=== PATIENT | male | born 1955 ===

== ENCOUNTER 2021-02-26 14:50 | Emergency (ER) ==
[~2021-02-26] VITALS: Ht 177.8 cm; Wt 74.8 kg
[2021-02-26] MEDS ORDERED: CASIRIVIMAB/IMDEVIMAB 10 ML in SODIUM CHLORIDE 0.9% 100 ML IV ONE (15:15)
== END 2021-02-26 16:29 | disposition home or self-care (01) ==
LOC: ER 15:35
DX: U07.1 COVID-19 (principal); R05.9 Cough, unspecified
CPT/HCPCS: 99283; J7050